=== PATIENT | female | born 1995 | race Caucasian/White ===

== ENCOUNTER 2016-12-06 16:14 | Emergency (ER) | payer OTHER ==
[2016-12-06 16:34] VITALS: BP 139/65
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
== END 2016-12-06 17:40 | disposition home or self-care (01) ==
LOC: UCCORT 16:14
DX: J02.9 Acute pharyngitis, unspecified (principal)
CPT/HCPCS: 87651; 99201; G0463

== ENCOUNTER 2016-12-09 15:53 | Emergency (ER) | payer OTHER ==
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
[2016-12-09 17:33] VITALS: BP 132/80
[2016-12-09 20:13] LABS: Hematocrit 43 % (35-47); Hemoglobin 14.5 g/dl (12.0-16.0); Mean Corpuscular HGB Conc 34 g/dl (31-36); Mean Corpuscular Hemoglobin 31 pg (27-31); Mean Corpuscular Volume 91 fL (80-97); Mean Platelet Volume 9 um3 (7.4-10.4); Red Blood Count 4.71 10^6/ul (4.0-5.4); Red Cell Distribution Width 12 % (10.5-15); White Blood Count 5.7 10^3/ul (3.5-10.8)
[2016-12-09 20:37] LABS: Manual Entry Verification MER0007; Mono Internal Control QC Line Present
[2016-12-09 20:44] LABS: Albumin 4.6 g/dL (3.2-5.2); BUN/Creatinine Ratio 12.5 (8-20); Calcium 9.1 mg/dL (8.6-10.3); EGFR African American 130.3 (>60); EGFR Non-African American 101.3 (>60); Globulin 2.4 g/dL (2-4); Potassium 3.6 mmol/L (3.5-5.0); Total Bilirubin 0.4 mg/dL (0.2-1.0)
== END 2016-12-09 17:50 | disposition home or self-care (01) ==
LOC: UCCORT 15:53
DX: J02.9 Acute pharyngitis, unspecified (principal); B34.9 Viral infection, unspecified
CPT/HCPCS: 36415; 80053; 85025; 86308; 99212; G0463

== ENCOUNTER 2017-11-02 17:36 | Emergency (ER) | payer OTHER ==
[2017-11-02 17:57] VITALS: BP 141/85
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
== END 2017-11-02 18:21 | disposition home or self-care (01) ==
LOC: UCCORT 17:36
DX: S70.12XA Contusion of left thigh, initial encounter (principal); S76.812A Strain of other specified muscles, fascia and tendons at thigh level, left thigh, initial encounter; X50.0XXA Overexertion from strenuous movement or load, initial encounter; Y93.79 Activity, other specified sports and athletics; Y92.9 Unspecified place or not applicable; Y99.0 Civilian activity done for income or pay
CPT/HCPCS: 99211; G0463